=== PATIENT | female | born 1985 | race African-American/Black ===

== ENCOUNTER 2018-01-14 20:12 | Emergency (ER) | payer OTHER ==
[2018-01-14 21:14] VITALS: BP 114/57
[2018-01-14] MEDS ORDERED: CEPHALEXIN 500 MG CAPSULE PO ONE (21:55)
--- NOTE | 2018-01-14 22:03 | ER Document Report ---
HPI - HPI Pain Level: 1 Notes: Patient is a 32-year-old female no significant past medical history who presents to the ED complaining of an insect bite to her right medial ankle with localized swelling and discomfort in that area. Patient states that she has not noticed any purulent discharge or abscess. Pain does not radiate. She has not noticed any red streaking. Denies any history of MRSA. Patient states that her symptoms started a few days ago. Denies any prolonged immobilization, distance travel, recent surgery/trauma, personal cancer history, hormone use, smoking, or previous DVT/PE. Denies any headache, fever, URI, sore throat, chest pain, palpitations, syncope, cough, shortness of breath, wheeze, dyspnea, abdominal pain, nausea/vomiting/diarrhea, urinary retention, dysuria, hematuria , loss of control of bowel or bladder, numbness/tingling, muscle paralysis/ weakness, or rash. - ROS Systems Reviewed and Negative: Yes All other systems reviewed and negative - CONSTITUTIONAL Constitutional: DENIES: Fever, Chills - EENT EENT: DENIES: Sore Throat, Ear Pain, Eye problems - NEURO Neurology: DENIES: Headache, Weakness, Vision blurred, Dizzinesss / Vertigo - CARDIOVASCULAR Cardiovascular: DENIES: Chest pain - RESPIRATORY Respiratory: DENIES: Trouble Breathing, Coughing - GASTROINTESTINAL Gastrointestinal: DENIES: Abdominal Pain, Black / Bloody Stools - URINARY Urinary: DENIES: Dysuria, Urgency, Frequency - REPRODUCTIVE LMP: may Reproductive: DENIES: :, Postmenopausal, Abnormal bleeding / discharge - MUSCULOSKELETAL Musculoskeletal: REPORTS: Extremity pain - right ankle Past Medical History - Social History Smoking Status: Former Smoker Chew tobacco use (# tins/day): No Frequency of alcohol use: None Drug Abuse: None Family History: Reviewed & Not Pertinent Patient has suicidal ideation: No Patient has homicidal ideation: No Renal/ Medical History: Denies: Hx Peritoneal Dialysis Past Surgical History: Reports: Hx Section Vertical Provider Document - CONSTITUTIONAL Agree With Documented VS: Yes Notes: PHYSICAL EXAMINATION: GENERAL: Well-appearing, well-nourished and in no acute distress. LUNGS: Breath sounds clear to auscultation bilaterally and equal. No wheezes rales or rhonchi. HEART: Regular rate and rhythm without murmurs, rubs, gallops. Musculoskeletal: Rt foot/ankle: FROM to passive/active. Strength 5+/5. N/V intact distal. + tenderness to the medial malleolus, mild. No bony tenderness of the foot. Achilles intact. + mild localized erythema w/o induration, fluctuance, abscess, streaks, or purulence. + mild tenderness to the medial ankle area. No calf tenderness. Gayla neg. No asymmetry otherwise. Extremities: No cyanosis, clubbing, or edema b/l. Peripheral pulses 2+. Capillary refill less than 3 seconds. NEUROLOGICAL: Normal speech, limping gait. Normal sensory, motor exams PSYCH: Normal mood, normal affect. SKIN: see above. Warm, Dry, normal turgor, no rashes or lesions noted. - INFECTION CONTROL TRAVEL OUTSIDE OF THE [place] IN LAST 30 DAYS: No Course - Re-evaluation Re-evalutation: 01/14/18 22:02 Patient is an afebrile, well-hydrated, 32-year-old female who presents to the ED with a very mild cellulitis to the right medial ankle status post insect bite. Vitals are acceptable without any significant tachycardia, tachypnea, or hypoxia. PE is otherwise unremarkable for any neurovascular compromise, obvious tendon/ligament rupture, obvious fracture/dislocation, septic joint. Patient is able to move at her ankle joint without any difficulties. Patient given Keflex p.o. today. She does have an allergy to penicillins which causes a rash only. Crosser activity reviewed. No other labs or imaging warranted at this time based on H&P. No incision and drainage is warranted as there is no evidence of fluctuance, abscess, induration. I will send her home with a prescription for Keflex. Recheck with your PCM in 2-3 days. Return to the ED with any worsening/concerning symptoms otherwise as reviewed discharge. Patient is in agreement. - Vital Signs Vital signs: Temp Pulse Resp BP Pulse Ox 98.0 F 74 16 114/57 L 98 01/14/18 21:12 01/14/18 21:12 01/14/18 21:12 01/14/18 21:12 01/14/18 21:12 Discharge - Discharge Clinical Impression: Insect bite Qualifiers: Encounter type: initial encounter Qualified Code(s): W57.XXXA - Bitten or stung by nonvenomous insect and other nonvenomous arthropods, initial encounter Condition: Stable Disposition: HOME, SELF-CARE Instructions: Insect Bites ([facility]) Additional Instructions: Keep the skin clean Wash with soap and water Tylenol/ibuprofen if needed Triple antibiotic ointment daily Take medication as directed Monitor for any worsening symptoms Recheck with your PCM in 2-3 days Return to the ED with any worsening symptoms and/or development of fever, headache, chest pain, palpitations, syncope, shortness of breath, trouble breathing, abdominal pain, n/v/d, abscess, purulent discharge, red streaks, worsening swelling, or other worsening symptoms that are concerning to you. Prescriptions: Cephalexin Monohydrate [Keflex 500 mg Capsule] 500 mg PO TID #21 capsule Referrals: [facility] [Provider Group] - Follow up as needed [facility] [Provider Group] - Follow up as needed
== END 2018-01-14 22:40 | disposition home or self-care (01) ==
LOC: ER 20:12
DX: S90.561A Insect bite (nonvenomous), right ankle, initial encounter (principal); W57.XXXA Bitten or stung by nonvenomous insect and other nonvenomous arthropods, initial encounter
CPT/HCPCS: 99282

== ENCOUNTER 2018-04-06 01:27 | Inpatient (IN) | payer OTHER, MEDICAID ==
[2018-04-06] MEDS: RINGERS SOLUTION,LACTATED 1,000 ML IV PRN (02:30)
[2018-04-06 02:33] LABS: ABSOLUTE BASOPHILS # (AUTO) 0.1 10^3/uL (0.0-0.2); ABSOLUTE EOSINOPHILS # (AUTO) 0.2 10^3/uL (0.0-0.6); ABSOLUTE LYMPHOCYTES (AUTO) 1.7 10^3/uL (0.5-4.7); ABSOLUTE NEUT (AUTO) 4.7 10^3/uL (1.7-8.2); BASOPHILS % (AUTO) 0.9 % (0-2); EOSINOPHILS % (AUTO) 2.9 % (0-6); HEMATOCRIT 34.4 % (36.0-47.0); HEMOGLOBIN 11.9 g/dL (12.0-15.5); LYMPHOCYTES % (AUTO) 21.7 % (13-45); MEAN CORPUSCULAR HEMOGLOBIN 30.5 pg (27.0-33.4); MEAN CORPUSCULAR HGB CONC 34.6 g/dL (32.0-36.0); MEAN CORPUSCULAR VOLUME 88 fl (80-97); PLATELET COUNT 163 10^3/uL (150-450); SEGMENTED NEUTROPHILS % (AUTO) 61.5 % (42-78); TOTAL CELLS COUNTED % (AUTO) 100 %; WHITE BLOOD COUNT 7.7 10^3/uL (4.0-10.5)
[2018-04-06] MEDS ORDERED: VANCOMYCIN HCL INJ 1000 MG VIAL ONE (02:40)
[2018-04-06] MEDS ORDERED: VANCOMYCIN HCL INJ 1000 MG VIAL IV PRN (02:42)
--- NOTE | 2018-04-06 02:42 | Admission Physical ---
Datetime Report Generated by CPN: 04/06/2018 02:41 CURRENT ADMISSION Chief Complaint: Suspected Ruptured Membranes Indication for Induction: Not Applicable Admit Impression : No Active Labor; Ruptured Membranes; Admit Plan: Admit to Unit; Initiate Protocol ALLERGIES Medication Allergies: Yes Medication Allergies: Penicillins/TN/Hives (04/06/2018) Latex: No Latex Allergies Food Allergies: denies Environmental Allergies: denies OBSTETRICAL HISTORY EDC: 04/16/2018 00:00 : 6 Para: 2 Term: 2 : 0 IAB: 3 Livin Cesareans: 1 Gestational Diabetes: No Rh Sensitization: No Incompetent Cervix: No TYLER: No Infertility: No ART Treatment: No Uterine Anomaly: No IUGR: No Hx Previous C/S: Yes Macrosomia: No Hx Loss/Stillborn: No PIH: No Hx : No Placenta Previa/Abruption: No Depression/PP Depression: Yes PTL/PROM: No Post Hemorrhage: No Current Procedures: Ultrasound; NST Obstetrical History Comments: g1-eab g2-eab g3-2007, , male, 7lb+, no complications, post depression for two weeks no meds g4-eab g5-2008, c/s for distress, female g6-current SEE RECORDS Alcohol: No Marijuana : No Cocaine: No Other Illicit Drugs: No Cigarettes: Former Smoker. 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 Heart Disease: No Hosp/Surgery: Yes Autoimmune Disorder: No Anesthetic Complications: No Kidney Disease: No Abnormal Pap Smear: No Neuro/Epilepsy: No Psychiatric Disorders: No Other Medical Diseases: No Hepatitis/Liver Disease: No Significant Family History: No Varicosities/Phlebitis: No Trauma/Violence : No Thyroid Dysfunction: No Medical History Comments: x1, c/s x 1, d_c x 1, depression for two weeks after first INFECTIOUS HISTORY Gonorrhea: No Genital Herpes: No Chlamydia: Yes Tuberculosis: No Syphilis: No Hepatitis: No HIV/AIDS Exposure: No Rash or Viral Illness: No HPV: No Infectious History Comments: chlamydia 2004 PHYSICAL EXAM General: Normal HEENT: Normal Neurologic: Normal Thyroid: Normal Heart: Normal Lungs: Normal Breast: Normal Back: Normal Abdomen: Normal Genitourinary Exam: Normal Extremities: Normal DTRs: Normal Pelvic Type: Adequate Vital Signs: Reviewed; Within Normal Limits VAGINAL EXAM Dilatation: 1 Effacement: thick Station: -3 Contraction Comments: q 2-3 MEMBRANES Pooling: Positive Membranes: Ruptured FETUS A EGA: 38.4 Monitoring: External US FHR- Baseline: 130s Accelerations: 15X15 Decelerations: None FHR Category: Category I Admit Comment: Pt had a successful vaginal delivery and was complete when she had her Primary C/S secondary to NRFHTs w/ her second delivery. She is GBS Pos with PCN allergy and Clindamycin resistance. Will give Vancomycin. PLANS FOR LABOR AND DELIVERY Labor and Delivery: None Pain Management: Natural Feeding Preference: Breast Benefit of Breast Feed Discussed: Yes Circumcision: N/A INFORMED CONSENT Signature: with User ID: [email or web address]
[2018-04-06 03:54] LABS: APPEARANCE,URINE CLEAR; BILIRUBIN,URINE NEGATIVE (NEGATIVE); COLOR,URINE YELLOW; GLUCOSE, URINE NEGATIVE (NEGATIVE); KETONES,URINE NEGATIVE (NEGATIVE); LEUKOCYTE ESTERASE,URINE NEGATIVE (NEGATIVE); NITRITE,URINE NEGATIVE (NEGATIVE); PROTEIN,URINE NEGATIVE (NEGATIVE); URINE SPECIFIC GRAVITY 1.008; UROBILINOGEN,URINE NEGATIVE mg/dL (<2.0)
[2018-04-06 04:11] LABS: URINE AMPHETAMINES SCREEN NEGATIVE; URINE BARBITURATES SCREEN NEGATIVE; URINE BENZODIAZEPINES SCREEN NEGATIVE; URINE COCAINE SCREEN NEGATIVE; URINE MARIJUANA (THC) SCREEN NEGATIVE; URINE METHADONE SCREEN NEGATIVE
[2018-04-06 04:21] LABS: URINE PHENCYCLIDINE SCREEN NEGATIVE
--- NOTE | 2018-04-06 05:16 | L&D Progress Notes ---
PROGRESS NOTES Datetime Report Generated by CPN: 04/06/2018 05:16 PROGRESS NOTE Impression: Normal Progression of Labor Procedures- Other: SVE Plan: Continue Present Management Vital Signs : Reviewed; Within Normal Limits Comment: Pt getting uncomfortable. Wonders if she should have repeat C/S vs epidural. She states that she had residual back pain afterwards. She is progressing and will try IV pain meds for now. Light mec now. VAGINAL EXAM Dilatation: 3 Dilatation: 1 Effacement: thick Effacement: thick Station: -3 Station: -3 Contractions: q 2-4 Contractions: q 2-3 LAST VAGINAL EXAM-NURSING Dilitation: 3.0 Dilitation: 1.0 Effacement: thick Effacement: thick Station: -3 Station: -3 Contractions: off the monitor for majority of the section, utd baseline MEMBRANES Pooling: Positive Pooling: Positive Membranes: Ruptured Membranes: Ruptured Amniotic Fluid Color: Meconium, Light FETUS A FHR - Baseline: 130s Monitoring: External US Variability: Moderate 6-25bpm Accelerations: 10X10 Decelerations: None FHR Category: Category I : 38.4 : 38.4 SIGNATURE SIGNATURE: [id number] SIGNATURE: [id number] Signature: with User ID: [email or web address]
[2018-04-06] MEDS ORDERED: PROMETHAZINE HCL INJ 25 MG/1 ML VIAL IV ONE (05:30)
[2018-04-06] MEDS ORDERED: NALBUPHINE HCL INJ 10 MG/1 ML AMPULE INJ ONE (05:30)
[2018-04-06] MEDS ORDERED: NALBUPHINE HCL INJ 10 MG/1 ML AMPULE ONE (06:23)
[2018-04-06] MEDS ORDERED: PROMETHAZINE HCL INJ 25 MG/1 ML VIAL ONE (06:23)
[2018-04-06] MEDS: VANCOMYCIN HCL 1,000 MG in DEXTROSE 5%-WATER 250 ML IV SCH (06:32)
[2018-04-06] MEDS: DEXTROSE 5%-LACTATED RINGERS 1,000 ML IV PRN ×2 (07:10→19:49)
[2018-04-06] MEDS ORDERED: OXYTOCIN/NORMAL SALINE 20 UNIT/1,000 ML RTUINJ IV PRN (07:35)
[2018-04-06] MEDS ORDERED: OXYTOCIN/NORMAL SALINE 20 UNIT/1,000 ML RTUINJ ONE (07:40)
--- NOTE | 2018-04-06 10:19 | PDOC PROGRESS REPORT ---
Subjective Reason For Visit: -assuming care of this 32yo @39+4 weeks admitted with SROM. Pt is a TOLAC , had a vaginal delivery with first delivery. PNC otherwise uncomplicated Physical Exam - Physical Exam Vital Signs: Intake & Output 04/05/18 04/06/18 04/07/18 06:59 06:59 06:59 Weight 104.6 kg - Obstetrical Exam Dilation (cm): 3 Effacement (%): 50 Station: -3 Tender: No Result Laboratory Results: 04/06/18 02:24 04/06/18 04/06/18 04/06/18 02:24 02:24 03:24 WBC 7.7 RBC 3.90 Hgb 11.9 L Hct 34.4 L MCV 88 MCH 30.5 MCHC 34.6 RDW 14.0 Plt Count 163 Seg Neutrophils % 61.5 Lymphocytes % 21.7 Monocytes % 13.0 Eosinophils % 2.9 Basophils % 0.9 Absolute Neutrophils 4.7 Absolute Lymphocytes 1.7 Absolute Monocytes 1.0 Absolute Eosinophils 0.2 Absolute Basophils 0.1 Urine Color YELLOW Urine Appearance CLEAR Urine pH 7.0 Ur Specific [place] 1.008 Urine Protein NEGATIVE Urine Glucose (UA) NEGATIVE Urine Ketones NEGATIVE Urine Blood SMALL H Urine Nitrite NEGATIVE Ur Leukocyte Esterase NEGATIVE Blood Type B POSITIVE Antibody Screen NEGATIVE Assessment & Plan - Diagnosis (1) 39 weeks gestation of Is this a current diagnosis for this admission?: Yes (2) Previous delivery affecting Is this a current diagnosis for this admission?: Yes - Plan Summary Plan Summary: Plan for vaginal delivery, labor is being augmented with pitocin. Desires epidural for pain control when needed. Will continue to monitor closely.
[2018-04-06] MEDS ORDERED: PHENYLEPHRINE HCL INJ/PF 10 MG/1 ML SDV ONE (10:34)
[2018-04-06] MEDS ORDERED: EPHEDRINE SULFATE INJ 50 MG/1 ML AMPULE ONE (10:34)
[2018-04-06] MEDS ORDERED: BUPIVACAINE HCL 0.5 % INJ/PF 30 ML SDV ONE (10:35)
[2018-04-06] MEDS ORDERED: FENTANYL/BUPIVACAINE/NS/PF 300 MCG/150 ML RTUINJ EPI ONE ×2 (10:35→20:50)
[2018-04-06] MEDS ORDERED: BUPIVACAINE HCL 0.25 % INJ/PF (2.5 MG/1 ML) 30 ML VIAL ONE (10:50)
[2018-04-06] MEDS ORDERED: FENTANYL CITRATE INJ/PF 100 MCG/2 ML AMPUL ONE (11:26)
[2018-04-07] MEDS: VANCOMYCIN HCL 1,000 MG in DEXTROSE 5%-WATER 250 ML IV SCH ×3 (03:33→15:09)
[2018-04-07] MEDS ORDERED: DIPHENHYDRAMINE HCL 50 MG/ML VIAL ONE (05:02)
[2018-04-07] MEDS ORDERED: DIPHENHYDRAMINE HCL 50 MG/ML VIAL IV ONE (05:10)
[2018-04-07] MEDS ORDERED: FENTANYL/BUPIVACAINE/NS/PF 300 MCG/150 ML RTUINJ EPI ONE (05:54)
[2018-04-07] MEDS ORDERED: OXYTOCIN/NORMAL SALINE 0 UNIT/0 ML RTUINJ ONE (06:26)
[2018-04-07] MEDS ORDERED: OXYTOCIN 10 UNIT/ML VIAL ONE ×2 (06:26→07:01)
[2018-04-07] MEDS ORDERED: MISOPROSTOL 0.2 MG TABLET ONE (06:26)
[2018-04-07] MEDS ORDERED: LIDOCAINE 1% INJ-PF (10 MG/ML) 30 ML SDV ONE (06:26)
[2018-04-07] MEDS ORDERED: CITRIC ACID/SODIUM CITRATE ORAL SOLN 15 ML UDCUP ONE (06:41)
[2018-04-07] MEDS ORDERED: LIDOCAINE 2%/EPINEPHRINE INJ 20 ML VIAL ONE ×2 (06:41)
[2018-04-07] MEDS ORDERED: SODIUM BICARBONATE 8.4% INJ 50 MEQ/50 ML DISP.SYRIN ONE ×2 (06:42)
[2018-04-07] MEDS ORDERED: CLINDAMYCIN 900 MG/D5W RTU 900 MG/50 ML RTUPB IV ONE (06:50)
[2018-04-07] MEDS ORDERED: FENTANYL CITRATE INJ/PF 100 MCG/2 ML AMPUL ONE (07:01)
[2018-04-07] MEDS ORDERED: MIDAZOLAM 2 MG/2 ML INJ ONE (07:02)
[2018-04-07] MEDS ORDERED: EPHEDRINE SULFATE INJ 50 MG/1 ML AMPULE ONE (07:02)
[2018-04-07] MEDS ORDERED: OXYTOCIN/NORMAL SALINE 20 UNIT/1,000 ML RTUINJ ONE (07:02)
[2018-04-07] MEDS ORDERED: ONDANSETRON HCL INJ/PF 4 MG/2 ML SDV ONE (07:02)
--- NOTE | 2018-04-07 07:24 | L&D Progress Notes ---
PROGRESS NOTES Datetime Report Generated by CPN: 04/07/2018 07:24 PROGRESS NOTE Impression: Normal Progression of Labor Plan: Deliver- Section Informed Consent Obtained: Section Delivery Comment: Pt has swollen cervical lip noted on pt right. Pt declined to sit up and requested to have a RLTCS. Reviewed risks and benefits of vaginal delivery and pt requested RLTCS. Will proceed to OR. VAGINAL EXAM Dilatation: 8 Effacement: 90 Station: 0 Contractions: reg Dilitation: cervix remains unchanged Dilitation: 8.0 Dilitation: 7.0 Dilitation: 7.0 Dilitation: 6.0 Dilitation: 6-7 Dilitation: 6.0 Dilitation: 4-5 Dilitation: 3.0 Effacement: edematous Effacement: thick swollen on right side Effacement: 90 Effacement: 90 Effacement: 80 Effacement: 80 Effacement: 80 Effacement: 50 Station: 0 to +1 Station: 0 to +1 Station: -1 Station: -1 Station: -2 Station: -2 Station: -2 Station: -3 Contractions: difficult to determine contraction pattern due to materanl movement, monitors adjusted for better monitoring. Contractions: irritability noted FETUS C SIGNATURE: [id number] Signature: Electronically signed by Keren Walls MD ([facility]LY [facility], 1928–1983) on 04/07/2018 at 07:23 with User ID: [email or web address]
[2018-04-07] MEDS ORDERED: FENTANYL CITRATE INJ/PF 100 MCG/2 ML AMPUL IV PRN ×3 (07:46)
[2018-04-07] MEDS ORDERED: MEPERIDINE HCL/PF INJ 25 MG/1 ML DISP.SYRIN IV PRN (07:46)
[2018-04-07] MEDS ORDERED: MORPHINE SULFATE 10 MG/ML INJ IV PRN (07:46)
[2018-04-07] MEDS ORDERED: DIPHENHYDRAMINE HCL 50 MG/ML VIAL IV PRN (07:46)
[2018-04-07] MEDS ORDERED: PROMETHAZINE HCL INJ 25 MG/1 ML VIAL IV PRN ×2 (07:46→08:16)
[2018-04-07] MEDS ORDERED: OXYCODONE-ACETAMINOPHEN 5-325 MG TABLET PO PRN ×2 (08:16)
[2018-04-07] MEDS ORDERED: SIMETHICONE 80 MG TAB.CHEW PO PRN (08:16)
[2018-04-07] MEDS ORDERED: MEASLES,MUMPS&RUBELLA VACC/PF 0.5 ML VIAL SUBCUT PRN (08:16)
[2018-04-07] MEDS ORDERED: DIPH/PERTUSS(ACELL)/TETANUS VAC/PF 0.5 ML SYR (>=10YO) IM PRN (08:16)
[2018-04-07] MEDS ORDERED: OXYTOCIN/NORMAL SALINE 20 UNIT/1,000 ML RTUINJ IV PRN (08:16)
[2018-04-07] MEDS ORDERED: ACETAMINOPHEN 1,000 MG/100 ML RTUPB IV PRN (08:19)
[2018-04-07] MEDS ORDERED: ACETAMINOPHEN 1,000 MG/100 ML RTUPB IV ONE (08:30)
[2018-04-07] MEDS ORDERED: KETOROLAC TROMETHAMINE INJ/PF 30 MG/1 ML SDV ONE ×2 (08:30→16:59)
[2018-04-07] MEDS ORDERED: MORPHINE SULFATE 10 MG/ML INJ ONE (09:13)
[2018-04-07] MEDS: PRENATAL VITAMIN W DHA CAPSULE PO SCH (13:04)
[2018-04-07] MEDS: RINGERS SOLUTION,LACTATED 1,000 ML IV PRN (16:53)
[2018-04-07] MEDS: KETOROLAC TROMETHAMINE INJ/PF 30 MG/1 ML SDV IV SCH (17:03)
[2018-04-07] MEDS: DOCUSATE SODIUM 100 MG CAPSULE PO SCH (17:06)
[2018-04-07] MEDS: ACETAMINOPHEN 325 MG TABLET PO PRN (21:24)
[2018-04-08] MEDS: VANCOMYCIN HCL 1,000 MG in DEXTROSE 5%-WATER 250 ML IV SCH (02:52)
[2018-04-08] MEDS: KETOROLAC TROMETHAMINE INJ/PF 30 MG/1 ML SDV IV SCH ×2 (02:55→09:42)
[2018-04-08 06:54] LABS: HEMOGLOBIN 9.5 g/dL (12.0-15.5); MEAN CORPUSCULAR HEMOGLOBIN 30.4 pg (27.0-33.4); MEAN CORPUSCULAR VOLUME 89 fl (80-97); PLATELET COUNT 147 10^3/uL (150-450); RED BLOOD COUNT 3.14 10^6/uL (3.72-5.28); WHITE BLOOD COUNT 11.4 10^3/uL (4.0-10.5)
--- NOTE | 2018-04-08 08:08 | PDOC PROGRESS REPORT ---
Subjective-OB Progress Note for:: 04/08/18 Subjective: 32yo G6 now P3 s/p repeat ppd1. Pt. ambulating, and voiding wihtout difficulty. Reports pain well controlled with medication. No concerns at this time. Physical Exam (OB) Vital Signs: Temp Pulse Resp BP Pulse Ox 98.1 F 69 18 123/71 98 04/08/18 00:45 04/08/18 00:45 04/08/18 00:45 04/08/18 00:45 04/08/18 00:45 Intake & Output 04/07/18 04/08/18 04/09/18 06:59 06:59 06:59 Intake Total 3000 1500 Output Total 1350 Balance 3000 150 - General General Appearance: Appears well In distress: None - PIH/Pre-Eclampsia Headache: Absent Epigastric Pain: No Visual Changes: No - Dressing Removed: Yes Incision: Well Approximated Closure Type: Steri-Strips - Lochia Lochia Amount: Small 10-25 ml Lochia Color: Rubra/Red - Abdomen Description: Tender, Soft, Round Hernia Present: No Fundal Description: Firm, Midline Fundal Height: u/u - u/2 - Respiratory Respiratory Status: No respiratory distress - Extremities Upper extremity: Normal inspection Lower extremities: Normal inspection - Neurological Cognition: Normal Orientation: AAOx4 - Psychological Associated symptoms: Normal affect, Normal mood Objective-Diagnostic Laboratory: 04/08/18 06:43 04/08/18 06:43 WBC 11.4 H RBC 3.14 L Hgb 9.5 L D Hct 28.0 L MCV 89 MCH 30.4 MCHC 34.0 RDW 14.0 Plt Count 147 L Assessment and Plan(PN) - Assessment and Plan (1) Acute blood loss anemia Is this a current diagnosis for this admission?: Yes Plan: increase dietary iron and FeSO4 BID (2) S/P repeat low transverse Is this a current diagnosis for this admission?: Yes Plan: routine pp care. Monitor for s/s of infection. (3) 39 weeks gestation of Is this a current diagnosis for this admission?: Yes (4) GBS (group B streptococcus) infection Is this a current diagnosis for this admission?: Yes Plan: delivered, treated x3 doses of vancomycin (5) Previous delivery affecting Is this a current diagnosis for this admission?: Yes Plan: routine pp care. Failed attempt at . - Time Spent with Patient Time with patient: Less than 15 minutes Medications reviewed and adjusted accordingly: Yes - Disposition Anticipated Discharge: Home Within: within 24 hours
[2018-04-08] MEDS: DOCUSATE SODIUM 100 MG CAPSULE PO SCH ×2 (09:41→17:54)
[2018-04-08] MEDS: PRENATAL VITAMIN W DHA CAPSULE PO SCH (09:41)
[2018-04-08] MEDS: ACETAMINOPHEN 325 MG TABLET PO PRN (23:43)
[2018-04-09] MEDS: ACETAMINOPHEN 325 MG TABLET PO PRN ×2 (06:12→14:37)
--- NOTE | 2018-04-09 09:10 | PDOC DISCHARGE SUMMARY ---
Final Diagnosis Discharge Date: 04/09/18 - Final Diagnosis (1) Acute blood loss anemia Is this a current diagnosis for this admission?: Yes (2) S/P repeat low transverse Is this a current diagnosis for this admission?: Yes (3) 39 weeks gestation of Is this a current diagnosis for this admission?: Yes (4) GBS (group B streptococcus) infection Is this a current diagnosis for this admission?: Yes (5) Previous delivery affecting Is this a current diagnosis for this admission?: Yes Discharge Data - Discharge Medication Prescriptions: Oxycodone HCl/Acetaminophen [Percocet 5-325 mg Tablet] 2 tab PO Q4HP PRN #20 tablet PRN Reason: For Pain Scale 3-5 Docusate Sodium [Colace 100 mg Capsule] 100 mg PO BID #60 capsule Ferrous Sulfate [Feosol 325 mg Tablet] 325 mg PO BID #60 tablet Ibuprofen [Motrin 800 mg Tablet] 800 mg PO Q8H PRN #60 tab PRN Reason: Abdominal Cramping Home Medications: Pnv No.95/Ferrous Fum/Folic AC [ Vitamins Tablet] 1 tab PO DAILY Docusate Sodium [Colace 100 mg Capsule] 100 mg PO BID #60 capsule 04/08/18 Ferrous Sulfate [Feosol 325 mg Tablet] 325 mg PO BID #60 tablet 04/08/18 Ibuprofen [Motrin 800 mg Tablet] 800 mg PO Q8H PRN #60 tab 04/08/18 Oxycodone HCl/Acetaminophen [Percocet 5-325 mg Tablet] 2 tab PO Q4HP PRN #20 tablet 04/08/18 Reason(s) for Admission: Onset of Labor - failed trial of labor Procedures: Ultrasound Intrapartum Procedure(s): : Low Cervical, Transverse - Diagnosis Test Laboratory: Temp Pulse Resp BP Pulse Ox 98.6 F 80 18 119/64 99 04/09/18 08:04 04/09/18 08:04 04/09/18 08:04 04/09/18 08:04 04/09/18 08:04 04/06/18 04/06/18 04/08/18 02:24 03:24 06:43 RBC 3.90 3.14 L Hgb 11.9 L 9.5 L D Hct 34.4 L 28.0 L Urine Opiates Screen NEGATIVE - Discharge information/Instructions Discharge Activity: Activity As Tolerated, Balance Activity w/Rest, No Driving, No Lifting Over 10 Pounds, No Lifting/Push/Pulling, Pelvic Rest, No tub bath, Walk Frequently Discharge Diet: As Tolerated, Regular Disposition: HOME, SELF-CARE Follow up with: [facility] - 1 week incision check in: 1, Weeks
[2018-04-09] MEDS: PRENATAL VITAMIN W DHA CAPSULE PO SCH (10:35)
[2018-04-09] MEDS: DOCUSATE SODIUM 100 MG CAPSULE PO SCH (10:36)
[2018-04-09 16:53] VITALS: BP 123/71
--- NOTE | 2018-04-28 23:35 | Delivery Summary ---
Del Sum A-C Datetime Report Generated by CPN: 04/28/2018 23:35 DELIVERY PERSONNEL DELIVERY PERSONNEL: [id number] Delivery Doctor:: Keren Cornejo DO Anesthesiologist:: Maye Soler MD PRODUCTION REPRODUCTION MANAGER:: Armando Alvarez CRNA Labor and Delivery Nurse:: Tifafny Blue RN Rubber Goods Finisher:: Radha Gandara RN Neonatal Nurse Practitioner:: BEATRIZ Fontenot Nursery Nurse:: Yanni Montoya RN Student Observers:: Flori dental laboratory technician Farm Machinery Assembler/ASSEMBLER PRODUCT: Chela Saenz ST Farm Machinery Assembler/ASSEMBLER PRODUCT: Tatyana Holt ST MATERNAL INFORMATION Delivery Anesthesia: Epidural Medications After Delivery: Pitocin Drip 20 Units/1000ml NSS Complication Details: TOLAC (c/s x 1 in 2008), lapse in care from August to November 2017 Provider Comments: Nuchal x4. mec noted at uterine incision LABOR SUMMARY EDC: 04/16/2018 00:00 No. Babies in Womb: 1 Attempted: Yes Labor Anesthesia: Epidural LABOR INFORMATION Reason for Induction: Not Applicable Onset of Labor: 04/07/2018 09:15 Cervical Ripening Agents: Cervidil Oxytocin: Augmentation Group B Beta Strep: positive Antibiotics # of Doses: 3 Antibiotics Time of Last Dose: 329 Name of Antibiotic Given: Vancomycin Steroids Given: None Reason Steroids Not Administered: Not Applicable MEMBRANES Membranes Rupture Method: Spontaneous Rupture of Membranes: 04/05/2018 23:30 Length of Rupture (hr): 32.18 Amniotic Fluid Color: Moderate Meconium Amniotic Fluid Amount: Large Amniotic Fluid Odor: Normal STAGES OF LABOR Stage 3 hr: 0 Stage 3 min: 1 Total Time in Labor hr: -1 Total Time in Labor min: -33 VAGINAL DELIVERY Episiotomy: None Laceration #1: None Laceration Extension #1: N/A Laceration Repair: Not Applicable Sponge Count Correct: N/A Sharps Count Correct: N/A CSECTION DELIVERY Primary Indication: maternal request Secondary Indication: Repeat Elective CSection Urgency: Non-Scheduled CSection Incidence: Repeat Labor: Labor Elective: Failed CSection Incision: Lower Uterine Transverse Uterine Closure: Double-layer closure BABY A INFORMATION Delivery Date/Time: 04/07/2018 07:41 Method of Delivery: Born in Route : No : Failed Forceps: N/A Vacuum Extraction: N/A Shoulder Dystocia : No PRESENTATION/POSITION BABY A Presentation: Cephalic Cephalic Presentation: Vertex Breech Presentation: N/A PLACENTA INFORMATION BABY A Placenta Delivery Time : 04/07/2018 07:42 Placenta Method of Delivery: Manual Removal Placenta Status: Delivered SCORES BABY A Heart Rate 1 min: >100 bpm Resp Effort 1 min: Good Cry Reflex Irritability 1 min: Cough or Sneeze or Pulls Away Muscle Tone 1 min: Active Motion Color 1 min: Blue/Pale Resuscitation Effort 1 min: Tactile Stimulation SCORE 1 MIN: 8 Heart Rate 5 min: >100 bpm Resp Effort 5 min: Good Cry Reflex Irritability 5 min: Cough or Sneeze or Pulls Away Muscle Tone 5 min: Active Motion Color 5 min: Body [place], Extremities Blue Resuscitation Effort 5 min: N/A SCORE 5 MIN: 9 INFANT INFORMATION BABY A Gestational Age at Delivery: 38.5 Gestational Status: Early Term- 37- 38.6 Weeks Infant Outcome : Liveborn Condition : Stable Sex: Female IDENTIFICATION BABY A Infant Verification Date/Time: 04/07/2018 07:50 ID Band Number: [id number] Mother's Name Verified: Yes RN Verifying : H Juliocesar RN Additional Verifying Personnel: B Baidy RN WEIGHT/LENGTH BABY A Infant Birthweight (gm): 2910 Weight (lb): 6 Infant Weight (oz): 7 Infant Length (in): 20.00 Infant Length (cm): 50.80 CORD INFORMATION BABY A No. Cord Vessels: 3 Nuchal Cord : Around Neck x4, Loose Cord Blood Taken: Yes-For Storage (Mom's Blood type +) Suction: Mouth ASSESSMENT BABY A Complications: Multiple Late Decels; Meconium Diesel Service Technician/ALS Called : Yes Infant Care By: S McCrimmon RN Transferred To: Nursery BABY B INFORMATION : N/A SIGNATURES Signature: Electronically signed by Keren Walls MD ([facility], [facility]) on 04/07/2018 at 08:14 with User ID: [email or web address]
--- NOTE | 2018-05-20 13:01 | Operative Report ---
Operative Report DATE OF SURGERY: 04/07/18 PREOPERATIVE DIAGNOSIS: 32yo at 39+4 weeks admitted for TOLAC. Pt elected for elective RLTCS POSTOPERATIVE DIAGNOSIS: Delivered vis RLTCS. OPERATION: RLTCS SURGEON: ALIN CENTENO ANESTHESIA: Epidural TISSUE REMOVED OR ALTERED: , placenta COMPLICATIONS: None ESTIMATED BLOOD LOSS: 500mL INTRAOPERATIVE FINDINGS: in cephalic presentation, vetex. Nucal cord x4, reduced prior to cord clamping. Hemostatis noted at end of case. PROCEDURE: The risks, benefits, and indications were reviewed with the patient and informed consent was obtained. The patient was taken to the OR where epidural anesthesia as found to be adequate. She was was then prepped and draped in the normal sterile fashion in the dorsal supine position was a leftward tilt. A pfannenstiel skin incision was them made with dayana scalpel and carried through to the underlying layer of fascia. The fascia was incised in the midline and the incision extended laterally with the person scissors. The superior aspect of the fascial incision was grasped with the Oliver clamps, elevated and the underlying rectus muscles dissected off. Attention was then turned to the inferior aspect of this incision, which in a similar fashion, was grasped, tended up with the oliver clamps and the rectus muscles dissected off bluntly. Rectus muscles were then at the midline; the peritoneum identified, tented up, and entered digitally. The peritoneal incision ws then extended horizontally with good visualization of the bladder. The bladder blade was then inserted. next, the lower uterine segment was incised in a transverse fashion with the scalpel. The uterine incision was then extended . Infant was found in the vertex position. The infants's head delivered atraumatically in the vertex position though the hysterotomy without difficulty. Nucal x4 was noted and reduced. The nose, and mouth were suctioned with the bulb syringe, and the cord doubley clamped and cut. The was handed off to the waiting baby nurse. The placenta was then removed spontaneously with gently traction of the umbilical cord. The uterus was then exteriorized and cleared of all clots and debris. The uterine incision was reparied with the 0-monocyrl in a running locked fashion. A second layer of 0-vicryl was used to embricated the hysterotomy. The posterior cul-de-sac was then irrigated. The uterus was returned to the abdomen and the hysterotomy was again noted to be hemostatic. The paracolic gutters were irrigated and cleared of all clot and debri. The fascia was reapproximated with 0-PDS in a running fashion. the subcuatnous layer was closed with 3-0 vicyrl in a running fashion. The skin was closed with 3-0 monocryl on a Ford needle in a subcutanous fashion. The incision was then dressed with steri-strips and pressure dressing applied. At the end of the case, bimanual exam performed with good uterine tone and minimal vaginal bleeding. the patient tolerated the procedure well. Sponge, lap, needle counts were correct times three. The patient was taken to the recovery room in stable condition.
--- NOTE | 2018-05-20 13:05 | PDOC DELIVERY SUMMARY ---
Delivery Summary - Maternal Hx : Hx # Term Pregnancies: 2 Number of Living Children: 2 ALIYAH: 04/09/18 Ruptured Membranes: AROM - Delivery Labor: Induction Presentation: Vertex Heart Rate Monitoring: Externally Support Person Present: Yes Location: OR Placenta: Within Normal Limits Number of Vessels (Cord): 3 Nuchal Cord: Yes - x4 Delivery of Placenta Date: 04/07/18 Estimated Blood Loss: 500ml - Medications Type of Anesthesia:: Epidural
== END 2018-04-09 18:25 | disposition home or self-care (01) | DRG 787 ==
LOC: LC 01:27 → LR 02:18 → 2S 04-07 10:20
PROVIDERS: ADMIT Obstetrics & Gynecology; ATTEND Obstetrics & Gynecology
PROC: 10D00Z1 Extraction of Products of Conception, Low, Open Approach (ICD-10-PCS; principal; 2018-04-07)
PROC: 4A1HXCZ Monitoring of Products of Conception, Cardiac Rate, External Approach (ICD-10-PCS; 2018-04-07)
DX: O34.211 Maternal care for low transverse scar from previous cesarean delivery (principal); D62 Acute posthemorrhagic anemia; O69.81X0 Labor and delivery complicated by cord around neck, without compression, not applicable or unspecified; O76 Abnormality in fetal heart rate and rhythm complicating labor and delivery; O77.0 Labor and delivery complicated by meconium in amniotic fluid; Z37.0 Single live birth; O99.02 Anemia complicating childbirth; O99.824 Streptococcus B carrier state complicating childbirth; Z88.0 Allergy status to penicillin; Z87.891 Personal history of nicotine dependence; Z3A.39 39 weeks gestation of pregnancy
CPT/HCPCS: 1961; 36415; 80307; 81005; 84112; 85025; 85027; 86592; 86850; 86900; 86901; 88307; 94799; J0131; J1200; J1885; J2250; J2270; J2300; J2370; J2405; J2550; J2590; J3010; J3370; J3490; J7060; J7120

== ENCOUNTER 2018-04-22 12:30 | Inpatient (IN) | payer OTHER, MEDICAID ==
[2018-04-22] MEDS ORDERED: HYDROMORPHONE HCL INJ/PF 2 MG/ML AMPULE ONE ×2 (13:22→13:44)
[2018-04-22] MEDS ORDERED: LIDOCAINE 1% INJ-PF (10 MG/ML) 30 ML SDV ONE (13:23)
[2018-04-22] MEDS ORDERED: LIDOCAINE 1% INJ-PF (10 MG/ML) 30 ML SDV INJ PRN (13:27)
[2018-04-22] MEDS ORDERED: RINGERS SOLUTION,LACTATED 1,000 ML IV ONE (13:30)
[2018-04-22] MEDS ORDERED: CEFAZOLIN SODIUM 2 GM in DEXTROSE 5%-WATER 100 ML IV ONE (14:00)
[2018-04-22] MEDS ORDERED: OXYCODONE-ACETAMINOPHEN 5-325 MG TABLET PO PRN ×2 (14:10)
[2018-04-22] MEDS ORDERED: CLINDAMYCIN 900 MG/D5W RTU 900 MG/50 ML RTUPB IV SCH (14:30)
[2018-04-22] MEDS: RINGERS SOLUTION,LACTATED 1,000 ML IV PRN (14:48)
[2018-04-22] MEDS ORDERED: CEFOXITIN INJ 1 GM VIAL IV SCH (15:00)
[2018-04-22 15:09] LABS: ABSOLUTE BASOPHILS # (AUTO) 0.1 10^3/uL (0.0-0.2); ABSOLUTE EOSINOPHILS # (AUTO) 0.1 10^3/uL (0.0-0.6); ABSOLUTE LYMPHOCYTES (AUTO) 1.6 10^3/uL (0.5-4.7); ABSOLUTE MONOCYTES (AUTO) 1.1 10^3/uL (0.1-1.4); ABSOLUTE NEUT (AUTO) 4.7 10^3/uL (1.7-8.2); BASOPHILS % (AUTO) 0.9 % (0-2); EOSINOPHILS % (AUTO) 1.9 % (0-6); HEMATOCRIT 33.4 % (36.0-47.0); HEMOGLOBIN 11.1 g/dL (12.0-15.5); LYMPHOCYTES % (AUTO) 21.6 % (13-45); MEAN CORPUSCULAR HEMOGLOBIN 29.1 pg (27.0-33.4); MEAN CORPUSCULAR HGB CONC 33.2 g/dL (32.0-36.0); MEAN CORPUSCULAR VOLUME 88 fl (80-97); MONOCYTES % (AUTO) 14.4 % (3-13); PLATELET COUNT 332 10^3/uL (150-450); RED BLOOD COUNT 3.81 10^6/uL (3.72-5.28); RED CELL DISTRIBUTION WIDTH 13.6 % (11.5-14.0); SEGMENTED NEUTROPHILS % (AUTO) 61.2 % (42-78); TOTAL CELLS COUNTED % (AUTO) 100 %; WHITE BLOOD COUNT 7.6 10^3/uL (4.0-10.5)
[2018-04-22 15:22] LABS: ALANINE AMINOTRANSFERASE 24 U/L (9-52); ALKALINE PHOSPHATASE 99 U/L (38-126); ANION GAP 9 (5-19); ASPARTATE AMINO TRANSFERASE 14 U/L (14-36); BILIRUBIN,DIRECT 0.3 mg/dL (0.0-0.4); BILIRUBIN,TOTAL 0.7 mg/dL (0.2-1.3); BLOOD UREA NITROGEN 12 mg/dL (7-20); CALCIUM 9.2 mg/dL (8.4-10.2); CARBON DIOXIDE 23 mmol/L (22-30); CHLORIDE 108 mmol/L (98-107); GLUCOSE 91 mg/dL (75-110); SODIUM 139.6 mmol/L (137-145)
[2018-04-22] MEDS: CLINDAMYCIN 900 MG/D5W RTU 900 MG/50 ML RTUPB IV SCH ×2 (15:27→23:22)
--- NOTE | 2018-04-22 16:27 | PDOC PROGRESS REPORT ---
Subjective Progress Note for:: 04/22/18 Subjective:: admitted from the office for postop wound infection of pfannensteil incision, no fevers/chills/night sweats, purulent drainage from left of incision Reason For Visit: WOUND INFECTION Physical Exam - Physical Exam Vital Signs: Temp Pulse Resp BP Pulse Ox 98.4 F 69 18 115/70 99 04/22/18 12:56 04/22/18 12:56 04/22/18 12:56 04/22/18 12:56 04/22/18 12:56 Intake & Output 04/21/18 04/22/18 04/23/18 06:59 06:59 06:59 Weight 104.6 kg General appearance: PRESENT: no acute distress, well-developed, well-nourished Head exam: PRESENT: atraumatic, normocephalic Respiratory exam: PRESENT: clear to auscultation [place]ent[place], symmetrical, unlabored Cardiovascular exam: PRESENT: RRR. ABSENT: diastolic murmur, rubs, systolic mu rmur GI/Abdominal exam: PRESENT: normal bowel sounds, soft, tenderness - throughout incision with induration noted, + erythema., other. ABSENT: distended, guarding, mass, organolmegaly, rebound Rectal exam: PRESENT: deferred Extremities exam: PRESENT: full ROM. ABSENT: calf tenderness, clubbing, pedal edema Musculoskeletal exam: PRESENT: ambulatory Neurological exam: PRESENT: alert, awake, oriented to person, oriented to place, oriented to time, oriented to situation, CN II-XII grossly intact. ABSENT: motor sensory deficit Psychiatric exam: PRESENT: appropriate affect, normal mood. ABSENT: homicidal ideation, suicidal ideation Skin exam: PRESENT: dry, intact, warm. ABSENT: cyanosis, rash Result Laboratory Results: 04/22/18 14:50 04/22/18 14:50 04/22/18 04/22/18 04/22/18 14:50 14:50 14:50 WBC 7.6 RBC 3.81 Hgb 11.1 L Hct 33.4 L MCV 88 MCH 29.1 MCHC 33.2 RDW 13.6 Plt Count 332 Seg Neutrophils % 61.2 Lymphocytes % 21.6 Monocytes % 14.4 H Eosinophils % 1.9 Basophils % 0.9 Absolute Neutrophils 4.7 Absolute Lymphocytes 1.6 Absolute Monocytes 1.1 Absolute Eosinophils 0.1 Absolute Basophils 0.1 Sodium 139.6 Potassium 4.0 Chloride 108 H Carbon Dioxide 23 Anion Gap 9 BUN 12 Creatinine 0.71 Est GFR ( Amer) > 60 Est GFR (Non-Af Amer) > 60 Glucose 91 Lactic Acid 0.6 L Calcium 9.2 Total Bilirubin 0.7 AST 14 ALT 24 Alkaline Phosphatase 99 Total Protein 6.0 L Albumin 3.0 L Status: Imported from PACS Assessment & Plan - Diagnosis (1) S/P repeat low transverse Is this a current diagnosis for this admission?: Yes Plan: approx 2wks postop from C/S after attempted TOLAC, GBS pos during labor (2) Complication of section wound Is this a current diagnosis for this admission?: Yes Plan: Will start Mefoxitin and Clindamycin. Dilaudid given for IV pain control and reviewed options for I&D in OR versus I&D at bedside. Pt desires bedside. 20ml of lidocaine injected for local and small 2cm extension of incision opened extending from already open area. She tolerated procedure well. Debrided and approx 10ml of purulent drainage obtained. Fascia intact and mild tracking of pocket. Wound debrided and copiously irrigated with approx 1.5liters of saline. She tolerated procedure well Dressing applied. Will performed BID wet to dry dressing and consult wound clinic as outpatient - Time Time Spent with patient: 25-34 minutes Medications reviewed and adjusted accordingly: Yes Anticipated discharge: Home Within: within 48 hours - Inpatient Certification Based on my medical assessment, after consideration of the patient's comorbidities, presenting symptoms, or acuity I expect that the services needed warrant INPATIENT care.: Yes I certify that my determination is in accordance with my understanding of Medicare's requirements for reasonable and necessary INPATIENT services [42 CFR 412.3e].: Yes Medical Necessity: Need For IV Fluids, Need for Pain Control, Need for IV Antibiotics
[2018-04-22] MEDS: CEFOXITIN SODIUM 2 GM in DEXTROSE 5%-WATER 100 ML IV SCH (16:39)
[2018-04-22] MEDS: DOCUSATE SODIUM 100 MG CAPSULE PO SCH (17:34)
[2018-04-22] MEDS ORDERED: ONDANSETRON 4 MG TAB.RAPDIS PO PRN (18:17)
[2018-04-22] MEDS: HYDROMORPHONE HCL INJ/PF 2 MG/ML AMPULE IV PRN (20:40)
[2018-04-22] MEDS: ONDANSETRON HCL INJ/PF 4 MG/2 ML SDV IV PRN (20:40)
[2018-04-23] MEDS: CEFOXITIN SODIUM 2 GM in DEXTROSE 5%-WATER 100 ML IV SCH ×4 (00:42→22:47)
[2018-04-23] MEDS: RINGERS SOLUTION,LACTATED 1,000 ML IV PRN ×3 (00:43→20:07)
[2018-04-23] MEDS: ONDANSETRON HCL INJ/PF 4 MG/2 ML SDV IV PRN ×4 (00:47→21:13)
[2018-04-23] MEDS: HYDROMORPHONE HCL INJ/PF 2 MG/ML AMPULE IV PRN ×2 (04:39→11:06)
[2018-04-23] MEDS: CLINDAMYCIN 900 MG/D5W RTU 900 MG/50 ML RTUPB IV SCH ×3 (06:17→21:36)
[2018-04-23 06:35] LABS: ABSOLUTE BASOPHILS # (AUTO) 0.1 10^3/uL (0.0-0.2); ABSOLUTE EOSINOPHILS # (AUTO) 0.1 10^3/uL (0.0-0.6); ABSOLUTE LYMPHOCYTES (AUTO) 1.4 10^3/uL (0.5-4.7); ABSOLUTE MONOCYTES (AUTO) 0.9 10^3/uL (0.1-1.4); ABSOLUTE NEUT (AUTO) 5.1 10^3/uL (1.7-8.2); BASOPHILS % (AUTO) 0.7 % (0-2); HEMATOCRIT 33.4 % (36.0-47.0); HEMOGLOBIN 11.3 g/dL (12.0-15.5); LYMPHOCYTES % (AUTO) 18.8 % (13-45); MEAN CORPUSCULAR HEMOGLOBIN 29.5 pg (27.0-33.4); MEAN CORPUSCULAR HGB CONC 33.7 g/dL (32.0-36.0); MEAN CORPUSCULAR VOLUME 88 fl (80-97); MONOCYTES % (AUTO) 11.3 % (3-13); PLATELET COUNT 342 10^3/uL (150-450); RED BLOOD COUNT 3.82 10^6/uL (3.72-5.28); RED CELL DISTRIBUTION WIDTH 13.9 % (11.5-14.0); SEGMENTED NEUTROPHILS % (AUTO) 67.2 % (42-78); TOTAL CELLS COUNTED % (AUTO) 100 %; WHITE BLOOD COUNT 7.6 10^3/uL (4.0-10.5)
[2018-04-23] MEDS: DOCUSATE SODIUM 100 MG CAPSULE PO SCH ×2 (09:05→17:45)
--- NOTE | 2018-04-23 11:24 | PDOC PROGRESS REPORT ---
Subjective Progress Note for:: 04/23/18 Subjective:: anxious regarding pain of packing changes. indicates need for pain medicine before changing dressing Reason For Visit: WOUND INFECTION Physical Exam - Physical Exam Vital Signs: Temp Pulse Resp BP Pulse Ox 98.2 F 79 18 117/68 96 04/23/18 08:44 04/23/18 08:44 04/23/18 08:44 04/23/18 08:44 04/23/18 08:44 Intake & Output 04/22/18 04/23/18 04/24/18 06:59 06:59 06:59 Intake Total 2348 150 Balance 2348 150 Weight 91.081 kg General appearance: PRESENT: no acute distress, cooperative GI/Abdominal exam: PRESENT: soft, tenderness - incision is approximately 2 1/2 cm long. tracks approximately 1 cm in each direction under skin. no erythem or edema noted today Result Laboratory Results: 04/23/18 06:23 04/22/18 14:50 04/22/18 04/22/18 04/22/18 14:50 14:50 14:50 WBC 7.6 RBC 3.81 Hgb 11.1 L Hct 33.4 L MCV 88 MCH 29.1 MCHC 33.2 RDW 13.6 Plt Count 332 Seg Neutrophils % 61.2 Lymphocytes % 21.6 Monocytes % 14.4 H Eosinophils % 1.9 Basophils % 0.9 Absolute Neutrophils 4.7 Absolute Lymphocytes 1.6 Absolute Monocytes 1.1 Absolute Eosinophils 0.1 Absolute Basophils 0.1 Sodium 139.6 Potassium 4.0 Chloride 108 H Carbon Dioxide 23 Anion Gap 9 BUN 12 Creatinine 0.71 Est GFR ( Amer) > 60 Est GFR (Non-Af Amer) > 60 Glucose 91 Lactic Acid 0.6 L Calcium 9.2 Total Bilirubin 0.7 AST 14 ALT 24 Alkaline Phosphatase 99 Total Protein 6.0 L Albumin 3.0 L 04/23/18 06:23 WBC 7.6 RBC 3.82 Hgb 11.3 L Hct 33.4 L MCV 88 MCH 29.5 MCHC 33.7 RDW 13.9 Plt Count 342 Seg Neutrophils % 67.2 Lymphocytes % 18.8 Monocytes % 11.3 Eosinophils % 2.0 Basophils % 0.7 Absolute Neutrophils 5.1 Absolute Lymphocytes 1.4 Absolute Monocytes 0.9 Absolute Eosinophils 0.1 Absolute Basophils 0.1 Sodium Potassium Chloride Carbon Dioxide Anion Gap BUN Creatinine Est GFR ( Amer) Est GFR (Non-Af Amer) Glucose Lactic Acid Calcium Total Bilirubin AST ALT Alkaline Phosphatase Total Protein Albumin Assessment & Plan - Diagnosis (1) Complication of section wound Is this a current diagnosis for this admission?: Yes - Time Time Spent with patient: 15-24 minutes Medications reviewed and adjusted accordingly: Yes Anticipated discharge: Home Within: within 24 hours - Inpatient Certification Based on my medical assessment, after consideration of the patient's comorbidities, presenting symptoms, or acuity I expect that the services needed warrant INPATIENT care.: Yes I certify that my determination is in accordance with my understanding of Medicare's requirements for reasonable and necessary INPATIENT services [42 CFR 412.3e].: Yes Medical Necessity: Need for Pain Control, Need for IV Antibiotics - Plan Summary Plan Summary: continue with antibiotics. rechk WBC in AM. plan for d/c in AM. Needs to teach family member how to do packing changes. d/w pt that at home would recommend taking a pain med approximately 30 min prior to packing change. Should require less as wound heals.
[2018-04-24] MEDS: ONDANSETRON HCL INJ/PF 4 MG/2 ML SDV IV PRN (05:01)
[2018-04-24] MEDS: CLINDAMYCIN 900 MG/D5W RTU 900 MG/50 ML RTUPB IV SCH (05:04)
[2018-04-24] MEDS: RINGERS SOLUTION,LACTATED 1,000 ML IV PRN (06:34)
[2018-04-24] MEDS: CEFOXITIN SODIUM 2 GM in DEXTROSE 5%-WATER 100 ML IV SCH (06:34)
[2018-04-24] MEDS: DOCUSATE SODIUM 100 MG CAPSULE PO SCH (09:32)
--- NOTE | 2018-04-24 10:07 | PDOC DISCHARGE SUMMARY ---
General - Admit/Disc Date/PCP Admission Date/Primary Care Provider: 04/22/18 12:33 FEMI Gibson JUANITO VICKY, Discharge Date: 04/24/18 - Discharge Diagnosis (1) Complication of section wound Is this a current diagnosis for this admission?: Yes (2) S/P repeat low transverse Is this a current diagnosis for this admission?: Yes - Additional Information Discharge Diet: As Tolerated Discharge Activity: Activity As Tolerated, No Lifting/Push/Pulling, No tub bath, Walk Frequently Prescriptions: Clindamycin HCl [Cleocin 150 mg Capsule] 300 mg PO Q8 #28 capsule Home Medications: Pnv No.95/Ferrous Fum/Folic AC [ Vitamins Tablet] 1 tab PO DAILY 04/06/18 Docusate Sodium [Colace 100 mg Capsule] 100 mg PO BID #60 capsule 04/08/18 Ferrous Sulfate [Feosol 325 mg Tablet] 325 mg PO BID #60 tablet 04/08/18 Ibuprofen [Motrin 800 mg Tablet] 800 mg PO Q8H PRN #60 tab 04/08/18 Oxycodone HCl/Acetaminophen [Percocet 5-325 mg Tablet] 2 tab PO Q4HP PRN #20 tablet 04/08/18 Acetaminophen [Tylenol 325 mg Tablet] 650 mg PO Q4HP PRN #60 tablet 04/09/18 Clindamycin HCl [Cleocin 150 mg Capsule] 300 mg PO Q8 #28 capsule 04/24/18 History of Present Illness Patient complains of: pt admitted with post op wound infection History of Present Illness: CHAVEZ MORENO is a 32 year old female Hospital Course Hospital Course: pt placed on IV antibiotics and wound care. On day of discharge incision is clean and no signs of infection Physical Exam - Physical Exam Vital Signs: Temp Pulse Resp BP Pulse Ox 98.3 F 55 L 15 123/73 97 04/24/18 07:46 04/24/18 07:46 04/24/18 07:46 04/24/18 07:46 04/24/18 07:46 Intake & Output 04/23/18 04/24/18 04/25/18 06:59 06:59 06:59 Intake Total 2348 2450 Balance 2348 2450 Weight 91.081 kg 93 kg Result Laboratory Results: 04/23/18 06:23 04/22/18 14:50 Plan Discharge Plan: D/C with home dressing change bid f/u sunday in office or prn Time Spent: Less than 30 Minutes
[2018-04-24 10:26] VITALS: BP 123/77
[2018-04-24] MEDS ORDERED: CLINDAMYCIN HCL 150 MG CAPSULE PO SCH (12:00)
--- NOTE | 2018-04-28 23:35 | Delivery Summary ---
Del Sum A-C Datetime Report Generated by CPN: 04/28/2018 23:35 DELIVERY PERSONNEL DELIVERY PERSONNEL: [id number] Delivery Doctor:: Keren Cornejo DO Anesthesiologist:: Maye Soler MD CONTENT ADMINISTRATOR:: Armando Alvarez CRNA Labor and Delivery Nurse:: Tiffany Blue RN Stallion Manager:: Radha Gandara RN Neonatal Nurse Practitioner:: BEATRIZ Fontenot Nursery Nurse:: Yanni Montoya RN Student Observers:: Flori label stamper Miscellaneous Machine Operator/CLUB STEWARD: Chela Saenz ST Miscellaneous Machine Operator/CLUB STEWARD: Tatyana Holt ST MATERNAL INFORMATION Delivery Anesthesia: Epidural Medications After Delivery: Pitocin Drip 20 Units/1000ml NSS Complication Details: TOLAC (c/s x 1 in 2008), lapse in care from August to November 2017 Provider Comments: Nuchal x4. mec noted at uterine incision LABOR SUMMARY EDC: 04/16/2018 00:00 No. Babies in Womb: 1 Attempted: Yes Labor Anesthesia: Epidural LABOR INFORMATION Reason for Induction: Not Applicable Onset of Labor: 04/07/2018 09:15 Cervical Ripening Agents: Cervidil Oxytocin: Augmentation Group B Beta Strep: positive Antibiotics # of Doses: 3 Antibiotics Time of Last Dose: 329 Name of Antibiotic Given: Vancomycin Steroids Given: None Reason Steroids Not Administered: Not Applicable MEMBRANES Membranes Rupture Method: Spontaneous Rupture of Membranes: 04/05/2018 23:30 Length of Rupture (hr): 32.18 Amniotic Fluid Color: Moderate Meconium Amniotic Fluid Amount: Large Amniotic Fluid Odor: Normal STAGES OF LABOR Stage 3 hr: 0 Stage 3 min: 1 Total Time in Labor hr: -1 Total Time in Labor min: -33 VAGINAL DELIVERY Episiotomy: None Laceration #1: None Laceration Extension #1: N/A Laceration Repair: Not Applicable Sponge Count Correct: N/A Sharps Count Correct: N/A CSECTION DELIVERY Primary Indication: maternal request Secondary Indication: Repeat Elective CSection Urgency: Non-Scheduled CSection Incidence: Repeat Labor: Labor Elective: Failed CSection Incision: Lower Uterine Transverse Uterine Closure: Double-layer closure BABY A INFORMATION Delivery Date/Time: 04/07/2018 07:41 Method of Delivery: Born in Route : No : Failed Forceps: N/A Vacuum Extraction: N/A Shoulder Dystocia : No PRESENTATION/POSITION BABY A Presentation: Cephalic Cephalic Presentation: Vertex Breech Presentation: N/A PLACENTA INFORMATION BABY A Placenta Delivery Time : 04/07/2018 07:42 Placenta Method of Delivery: Manual Removal Placenta Status: Delivered SCORES BABY A Heart Rate 1 min: >100 bpm Resp Effort 1 min: Good Cry Reflex Irritability 1 min: Cough or Sneeze or Pulls Away Muscle Tone 1 min: Active Motion Color 1 min: Blue/Pale Resuscitation Effort 1 min: Tactile Stimulation SCORE 1 MIN: 8 Heart Rate 5 min: >100 bpm Resp Effort 5 min: Good Cry Reflex Irritability 5 min: Cough or Sneeze or Pulls Away Muscle Tone 5 min: Active Motion Color 5 min: Body [place], Extremities Blue Resuscitation Effort 5 min: N/A SCORE 5 MIN: 9 INFANT INFORMATION BABY A Gestational Age at Delivery: 38.5 Gestational Status: Early Term- 37- 38.6 Weeks Infant Outcome : Liveborn Condition : Stable Sex: Female IDENTIFICATION BABY A Infant Verification Date/Time: 04/07/2018 07:50 ID Band Number: [id number] Mother's Name Verified: Yes RN Verifying : H Juliocesar RN Additional Verifying Personnel: B Baidy RN WEIGHT/LENGTH BABY A Infant Birthweight (gm): 2910 Weight (lb): 6 Infant Weight (oz): 7 Infant Length (in): 20.00 Infant Length (cm): 50.80 CORD INFORMATION BABY A No. Cord Vessels: 3 Nuchal Cord : Around Neck x4, Loose Cord Blood Taken: Yes-For Storage (Mom's Blood type +) Suction: Mouth ASSESSMENT BABY A Complications: Multiple Late Decels; Meconium Family Service Worker/ALS Called : Yes Infant Care By: S McCrimmon RN Transferred To: Nursery BABY B INFORMATION : N/A SIGNATURES Signature: with User ID: [email or web address]
== END 2018-04-24 12:46 | disposition home or self-care (01) | DRG 769 ==
LOC: LC 12:30 → 2N 12:33
PROVIDERS: ADMIT Obstetrics & Gynecology; ATTEND Obstetrics & Gynecology
PROC: 0JDC0ZZ Extraction of Pelvic Region Subcutaneous Tissue and Fascia, Open Approach (ICD-10-PCS; principal; 2018-04-22)
DX: O86.01 Infection of obstetric surgical wound, superficial incisional site (principal)
CPT/HCPCS: 36415; 80053; 83605; 85025; 87040; 87070; 87077; 87186; 87205; J0694; J1170; J2405; J3490; J7120; S0119

== ENCOUNTER 2018-04-26 14:38 | Emergency (ER) | payer OTHER, MEDICAID ==
--- NOTE | 2018-04-26 19:16 | ER Document Report ---
ED Medical Screen (RME) - General Chief Complaint: Leg Pain Stated Complaint: LEG PAIN Time Seen by Provider: 04/26/18 15:52 TRAVEL OUTSIDE OF THE [place] IN LAST 30 DAYS: No - HPI Patient complains to provider of: Leg pain postop Onset: Other - 32-year-old female status post section in early March approximately 1 month prior after which she had a complicated course including a postop infection which required hospitalization and IV antibiotics. Since then she is been able to be home is bottle feeding her but today and yesterday began to notice some swelling behind the left leg where she had pointed out prior to hospital discharge at which time she was told this was likely a varicose vein but because it seemed a little more swollen prompted her to come the emergency room for further investigation. She denies any shortness of breath, chest pain, abdominal pain, diarrhea constipation dysuria. States that otherwise she has been doing well since being discharged from the hospital after the infection. - Related Data Allergies/Adverse Reactions: Penicillins Allergy (Mild, Verified 04/26/18 14:39) Hives Past Medical History - General Information source: Patient - Social History Cigarette use (# per day): No Frequency of alcohol use: None Drug Abuse: None Renal/ Medical History: Denies: Hx Peritoneal Dialysis Past Surgical History: Reports: Hx Section - x2 Review of Systems - Review of Systems -: Yes All other systems reviewed and negative Physical Exam - Vital signs Vitals: Temp Pulse Resp BP Pulse Ox 98.9 F 59 L 16 128/72 H 96 04/26/18 14:47 04/26/18 14:47 04/26/18 14:47 04/26/18 14:47 04/26/18 14:47 Interpretation: Normal - General General appearance: Appears well, Alert - HEENT Head: Normocephalic, Atraumatic Eyes: Normal Pupils: PERRL - Respiratory Respiratory status: No respiratory distress Chest status: Nontender Breath sounds: Normal Chest palpation: Normal - Cardiovascular Rhythm: Regular Heart sounds: Normal auscultation Murmur: No - Abdominal Inspection: Normal Distension: No distension Bowel sounds: Normal Tenderness: Nontender Organomegaly: No organomegaly - Back Back: Normal, Nontender - Extremities General upper extremity: Normal inspection, Nontender, Normal color, Normal ROM, Normal temperature General lower extremity: Tender, Other - There is an erythematous circular spot just inferior to the knee on the left medial aspect of the gastrocnemius, there is no obvious fluctuance, no obvious underlying fluid wave. - Neurological Neuro grossly intact: Yes Cognition: Normal Orientation: AAOx4 [place] Coma Scale Eye Opening: Spontaneous [place] Coma Scale Verbal: Oriented [place] Coma Scale Motor: Obeys Commands Kath[place] Coma Scale Total: 15 Speech: Normal Motor strength normal: LUE, RUE, LLE, RLE Sensory: Normal - Psychological Associated symptoms: Normal affect, Normal mood - Skin Skin Temperature: Warm Skin Moisture: Dry Skin Color: Normal Course - Re-evaluation Re-evalutation: 04/26/18 21:07 There is a 32-year-old female who presented for concern of potential DVT in her left lower extremity. On examination she does have some swelling just past her knee in the medial aspect of the leg. This does demonstrate an area which could be concerning for potential DVT given that she is a postop patient who has not been on anticoagulation she denies any symptoms to suggest pulmonary embolism at this time with no shortness of breath chest pain or other symptoms. We will obtain ultrasound of the left lower extremity will defer blood work at this time pending results of ultrasound. Patient with a negative ultrasound of the left lower extremity for DVT. It is possible that this patient has a superficial vein thrombus which was not visualized, it is possible that this could be a varicosity. Because of the symptoms she is having I did give symptomatic care instructions including warm compresses and aspirin use. - Vital Signs Vital signs: Temp Pulse Resp BP Pulse Ox 98.9 F 78 18 120/76 100 04/26/18 20:03 04/26/18 20:03 04/26/18 20:03 04/26/18 20:03 04/26/18 20:03 Doctor's Discharge - Discharge Clinical Impression: Leg pain, left, Leg swelling Condition: Good Disposition: HOME, SELF-CARE Additional Instructions: You were seen today for the swelling in your right leg. You had an ultrasound of the leg for a possible blood clot. No blood clot has been identified in your leg. This area could potentially represent a varicose issue and I think that you should take aspirin as you had planned previously. I would apply warm compress to this area twice daily at least over the next several days. Try to avoid any pants which are tight around this area. You should return in case of spread of this swelling, fevers, chills or any pain which worsens in that area. Referrals: FEMI HOWE, DO [Primary Care Provider] - Follow up as needed
[2018-04-26 20:04] VITALS: BP 120/76
--- NOTE | 2018-04-27 09:07 | XCELERA REPORT ---
[address] [place] [facility] [id number] Lower Extremity Venous Evaluation Procedure: Color flow and duplex imaging of the veins of the left lower extremity as well as the right Common Femoral vein. Right Sided Venous Evaluation The right common femoral vein is fully compressible. Spontaneous and phasic flow is present in the right common femoral vein. Left Sided Venous Evaluation Normal vessel filling wall to wall, compression and augmentation as well as Colour flow down to the infrageniculate veins. Interpretation Summary No duplex evidence of DVT or obstruction in the left lower extremity nor in the right Common Femoral vein. Name: CHAVEZ MORENO Age: 32 yrs Gender: Female : 1985 Patient Status: Emergency Patient Location: ER Study Date: 04/26/2018 05:56 PM Reason For Study: pain left leg / Hx clots Ordering Physician: SILKE DEE Performed By: Ashely Little : SILKE DEE > Giuseppe Matta
== END 2018-04-26 20:15 | disposition home or self-care (01) ==
LOC: ER 14:38
DX: O90.89 Other complications of the puerperium, not elsewhere classified (principal); M79.89 Other specified soft tissue disorders; M79.605 Pain in left leg; O99.73 Diseases of the skin and subcutaneous tissue complicating the puerperium; L53.9 Erythematous condition, unspecified; Z98.890 Other specified postprocedural states; Z88.0 Allergy status to penicillin
CPT/HCPCS: 93971; 99283